=== PATIENT | female | born 1950 | race Caucasian/White ===

== ENCOUNTER 2016-11-23 06:02 | Inpatient (IN) | payer OTHER ==
--- NOTE | 2016-11-12 14:46 | PCM.ANEPRE ---
Anesthesia Pre-Op Review Reason for Review: SURGEON'S REQUEST "COMORBIDITIES & CLEARANCE REVIEW" Anesthesia Recommendations: Proceed with Procedure Additional Comments 66 yo female, morbidly obese (BMI 40), chronic pain on methadone, mild- intermittent asthma, h/o atrial fibrillation. Stop-bang 3. Presents for 4-level ACDF for cervical stenosis with worsening myelopathy. Of course, the anesthesiologist will need to evaluate the patient on the day of surgery, but based on a review of her chart I see no reason to delay for further evaluation. Kranthi Ferguson MD Nov 12, 2016 14:46
--- NOTE | 2016-11-22 16:21 | PCM.HPSURG ---
Subjective Date of Service: Nov 08, 2016 Referring Provider: Admitting Physician: Primary Care Physician: Candis Adan DO Attending Physician: Brian Chambers MD Chief Complaint SEE BELOW History of Present Illness Patient: Homa Reyes Date of : 1950 Visit Type: Pre Op Visit Date: 11/08/2016 10:45 AM This 66 year old female presents for Preop C3-7 ACDF, Allograft x 4 and & Plating. History of Present Illness: 1. Preop C3-7 ACDF, Allograft x 4, & Plating Homa Reyes is a 66 year old female referred by Primary Care Provider (PCP ) Dr. Candis Adan D.O. who presents today's date 11/08/2016 for a preoperative type of appointment concerning the decision for surgery involving C3-4, C4-5, C5 -6, & C6-7 anterior cervical discectomy and fusion, with allograft bone 4, & anterior cervical plating from C3-7 secondary to a diagnosis of cervical spondylosis with myelopathy with related complaints of severe, intractable, and debilitating headache with referred neck spasm to the lower back & pain radiating to the bilateral shoulders, upper, & lower extremities worse on the left-side including numbness, paresthesias, dysesthesias, & difficulty with coordination, imbalance, & bladder spasticity. The patient was last evaluated by Dr. Brain Greenfield M.D. on 10/13/2016 documenting spondylosis and symptoms of myelopathy with gradual progression over the past 2 years. She was seen in consultation 08/19/2016 found to have cord compression in 4 levels C3-C7 and a C3-C4 subluxation and symptoms of cervical myelopathy. EMGs/NCV's were obtained 08/24/2016 that did not show cervical radiculopathy and did not show evidence of peripheral neuropathy. It should be noted that this patient does have bilateral shoulder joint injury causing local shoulder and arm pain with arm movements it is currently on medical management for this condition. She is primarily symptomatic from cervical myelopathy and reports that cervical flexion causes a diffuse heavy ache in her upper extremities and lower extremities, and increased left hand pain. She has characteristic symptoms of cervical myelopathy. She reports constant local neck pain with flareups of more intense local pain, headache and stiffness. She also reports a constant ache between the shoulder blades. She reports that her arms and legs feel tired heavy and achy diffusely over the past year. She reports sharp shooting pains down the posterior arm forearm and into the hands bilaterally over the past 6 months. She also reports episodes of sharp shooting pains down both legs involving the lateral leg and anterior leg more severe on the right side over the past 6 months. She reports constant numbness involving her whole body the face but most of the numbness and the paresthesias are in her hands and feet over the past 6 months. She reports that her hands feel shaky is dropping things and she is loss coordination in her hands with deterioration of her handwriting over the past year. She also reports a cramping sensation in her forearms, hands and feet over the past year. She reports that the cramping in the paresthesias in the feet can wake her from sleep. She has had lumbar spasms for many years but the spasms have progressed over the past 2 years. She also reports frequent falls and impairment of balance over the past year. She's had a long history of bladder spasticity voiding 1-2 times at night 10 years ago. Over the past 3-4 years she has been voiding 4-6 times. The patient reports that cervical extension causes local neck pain, pain between the shoulder blades and diffuse aches in her shoulders and upper arms. However the patient has bilateral shoulder joint pain with arm movement more severe on the left side. Arm movements can't provoke numbness paresthesias and cramping and pain in the arms and hands. An MRI scan of the cervical spine was obtained 06/14/2016 showing a C3-4 subluxation and spondylosis with evidence of cord compression at 4 levels, C3-4 C4-5 C5-C6 and C6-7. She also has severe neural foraminal narrowing on the right side or and C5-6 and on the left side at C4-5. Having failed conservative treatment the patient is an appropriate candidate for surgery involving a C3-C7 ACDF with allograft bone and C3-C7 anterior cervical plating. Dr. Chambers & the patient discussed all the risks and benefits associated with the procedure as well as reasonable expectations with regard to surgical outcomes & the patient elected to proceed with surgery as planned. The patient denies any complete or acute loss of control of bowel or bladder function, saddle paresthesia or anesthesia. The patient has a pertinent positive past medical, surgical and social history for right knee surgery, left elbow surgery, lumbar spinal decompression 3, hysterectomy, section 2, nose surgery, history of atrial fibrillation , hypertension, IBS, psoriasis, ADHD, migraines, restless leg syndrome, history of anorexia nervosa, depression, PTSD, osteoarthritis, history of spinal meningitis, seasonal allergies & mild-moderate worsening asthma, osteoarthritis , history of angina, history of hyperkalemia, patient believes that she has unsubstantiated autoimmune disorder lupus, chronic pain management (methadone), & likely chronic pain syndrome. The patient's related complaints have been a serious detriment to their happiness and activities of daily living. Having failed conservative treatment the patient presents today for their decision for surgery appointment involving C3-4, C4-5, C5-6, & C6-7 anterior cervical discectomy and fusion, with allograft bone 4, & anterior cervical plating from C3-7 for treatment of cervical spondylosis with myelopathy; related to severe, intractable, and debilitating headache with referred neck spasm to the lower back & pain radiating to the bilateral shoulders, upper, & lower extremities worse on the left-side including numbness, paresthesias, dysesthesias, & difficulty with coordination, imbalance, & bladder spasticity. The procedure is scheduled to be performed by Dr. Brian Chambers M.D. on 11/23/2016. ANESTHESIA & PERIOPERATIVE NOTE: We are requesting anesthesia preoperative consultation for review of comorbidities including but not limited to methadone pain management, mild-moderate asthma, history of atrial fibrillation, & medical clearance documentation. Student Accounts Coordinator Dino Allen NP & the patient's PCP will manage her outpatient post-operative pain. Problem List: Problem Description Fibromyalgia Restless leg syndrome Atrial fibrillation IBS - Irritable bowel syndrome Chronic back pain ADHD Migraine headache Anxiety PTSD Vision impairment Hearing impairment Depression H/O: chronic ear infection Osteoarthritis Medical/Surgical/Interim History Reviewed, no change. Last detailed document date:11/08/2016. Family History: Reviewed, no changes. Last detailed document date:11/08/2016. Social History (Reviewed, updated) 11/08/2016 Tobacco use reviewed. Preferred language is Sami. The patient does not need an flame cutting machine operator helper. Education/Employment/Occupation Employment History Status Retired Restrictions Geriatric Sales Ledger Administrator Currently . Smoking status: Former smoker. Smoking Status Use Status Type Smoking Status Years Used Total Pack Years yes Cigarette Former smoker Cessation Type Date Quit Longest Tobacco Free Cessation Method Cigarette 08/01/1990 25 Years CAFFEINE The patient uses caffeine - 2 cups a day. Allergies: Ingredient Reaction Medication Name Comment PERFUME KIWI LATEX PINEAPPLE IODINE METHOTREXATE KETOROLAC WALNUT Reviewed, no changes. Review of Systems System Neg/Pos Details Positive Nocturia. Neuro Positive Headache. MS Positive Back pain, Bone/joint symptoms, Muscle weakness, Myalgia, Neck stiffness. ENMT Positive Hearing loss. GI Negative Abdominal pain, constipation, diarrhea, nausea and vomiting. Reilly/Lymph Negative Blood clots. Constitutional Negative Chills and fever. Respiratory Negative Dyspnea, apnea and wheezing. Eyes Negative Double vision and vision loss. Psych Negative Anxiety and depression. Cardio Negative Chest pain, irregular heartbeat/palpitations, leg swelling and pacemaker. Integumentary Negative Mrsa and rash. Neuro Negative Dizziness and seizures. Endocrine Negative Weight gain and weight loss. Negative Dysuria, urge incontinence and urinary incontinence. Vital Signs Height Time ft in cm Last Measured Height Position % 10:23 AM 5.0 4.00 162.56 08/11/2016 Weight/BSA/BMI Time lb oz kg Context % BMI kg/m2 BSA m2 10:23 AM 237.20 107.592 dressed with shoes 40.71 Blood Pressure Time BP mm/Hg Position Side Site Method Cuff Size 10:23 AM 126/84 sitting left wrist automatic adult Temperature/Pulse/Respiration Time Temp F Temp C Temp Site Pulse/min Pattern Resp/ min 10:23 AM 98.7 37.1 95 regular Pain Scale Time Pain Score Method 10:23 AM 6/10 Numeric Pain Intensity Scale Measured By Time Measured by 10:23 AM Donal Granados MA Screening Summary:o The following were reviewed: tobacco use, alcohol use and caffeine use Physical Exam Exam Findings Details Comments WD/WN, woman who is AO x 3, cooperative & appears to be in NAD w/ language & speech that is intact & fluent. There is no evidence of recent or remote memory impairment. The patient's knowledge is appropriate for age & level of education w/ a pleasant affect & euthymic mood. Ambulates w/ no difficulty. NC/AT, PERRL, EOMI, w/o facial droop, hearing grossly intact, nostrils patent, oral cavity and pharynx normal. Neck supple, w/o LAD or thyromegaly. Heart reveals RRR w/o audible murmurs Lungs CTAB Abdomen is NT/ND Decreased ROM of Cervical Spine Positive Spurlings, Neg Hoffmans, Neg Lhermittes Positive Tinnels bilateral, Neg Phalens, tenderness over cubital tunnel provoking ulnar distribution pain bilaterally Motor Strength: 5/5 throughout in UEs and LEs Diminished sensation in an ulnar distribution bilaterally and left C6 DTRs, are 2+ in UEs, 2+ knees bilaterally absent at the ankles, no clonus Assessment/Plan # Detail Type Description 1. Assessment Cervical spondylosis with myelopathy (M47.12). 2. Assessment Preop examination (Z01.818). Patient Plan We including your Attending Surgeon have discussed the risks and benefits associated your scheduled procedure which you have verbally acknowledged understanding including but not limited to the possibility of an outcome that we are unable to predict or was not mentioned. 1. You are scheduled for a C3-4, C4-5, C5-6, & C6-7 anterior cervical discectomy and fusion, with allograft bone 4, & anterior cervical plating from C3-[address] Brian Morfin M.D. at [facility] on 11/23/2016. 2. Check in time is 6 AM. Also please ignore instructions below if told otherwise by your preadmission nurse or if you do not take the medications listed below. 3. Nothing to eat after midnight the night before surgery. You may take all of your "approved" medications with small sips of water. Remember to take your a.m. hypertension medication if it is a beta chay and ends in "olol. Otherwise ask your doctor if you need to hold your a.m. hypertension medication. 4. No aspirin, ibuprofen, Naprosyn, or other NSAIDs starting 7 days prior to surgery. 5. Please stop Warfarin/Coumadin or other blood thinners such as Plavix, Aggrenox, or Xarelto 7 days prior to your surgical procedure and follow specific instructions from your prescribing provider. 6. Please stop Lovenox bridging in the morning one day prior to procedure. 7. Please stop Suboxone/Buprenorphine at least 4 days prior to procedure. 8. Go to the hospital today to get her preoperative testing done. Take the order form to the surgery desk on the second floor of the hospital, [facility] (main entrance next to the emergency entrance). I will notify you if there is any test results that require further workup prior to surgery. 9. Follow the instructions you were given today, use the cleansing cloths the night before as well as the morning of her surgery. 10. If you are prescribed inhalers, CPAP or BiPAP machines you use at home bring along with you to the hospital. 11. ONLY If you take medications for Diabetes: If you have an insulin pump continue lowest (typically night-time) basal rate into the a.m. If you do not have a pump check h your a.m. blood sugar and hold insulin if BS less than 100. If you are taking long-acting, intermediate acting (NPH) or 70/30 preparation : Take half on day of procedure. If you are taking ultra long-acting insulin such as glargine, Lantus either at night or in the a.m. continue as scheduled ( including day of surgery). If you take short acting regular insulin (insulin not delivered via pump) discontinue on day of procedure. 12. Please call if you have any questions before your surgery: [phone]. Today's instructions/counseling include(s) Pre-operative instructions given to the patient and or legal ocean import representative(s) orally and in writing. 13. Our office will contact you if there are any test results that require further workup prior to surgery. 14. Please see Dino Allen & Dr. Candis Adan DMorenitaOMorenita this week to discuss her postoperative pain management & obtain medical clearance to proceed with surgery. Provider Plan The patient's history and examination as well as radiological findings were reviewed with Dr. Brian Greenfield M.D. and conveyed the patient in detail. The findings are consistent with cervical spondylosis with myelopathy and are most likely the cause of the patient's severe, intractable, and debilitating headache with referred neck spasm to the lower back & pain radiating to the bilateral shoulders, upper, & lower extremities worse on the left-side including numbness, paresthesias, dysesthesias, & difficulty with coordination, imbalance, & bladder spasticity. The patient has failed extensive conservative treatment for this condition. The treatment options were discussed with the patient. The options include attempt to live with the condition, reattempt conservative treatment, try a pain management intervention / injection or consider a surgical intervention. We are not extremely optimistic that further conservative treatment, pain management intervention and/or injection will adequately resolve the patient's symptoms of severe, intractable, and debilitating headache with referred neck spasm to the lower back & pain radiating to the bilateral shoulders, upper, & lower extremities worse on the left-side including numbness, paresthesias, dysesthesias, & difficulty with coordination, imbalance, & bladder spasticity. Therefore we recommend C3-4, C4-5, C5-6, & C6-7 anterior cervical discectomy and fusion, with allograft bone 4, & anterior cervical plating from C3-7. The patient was provided/offered educational materials pertaining to their diagnosis and the above discussed procedure. We discussed the risks and benefits associated with this surgery. A spine model was used to explain the nature of this type of surgery. The risk of the required anesthesia was also mentioned including but not limited to organ failure such as heart attack, pneumonia and stroke even . The risk of this type of surgery was also mentioned. Including but not limited to an unsuccessful outcome, residual symptoms, odynophagia, dysphasia or sore throat, referred or radiating posterior spinal myofascial inflammatory pain or spasm, post operative instability, instrumentation failure, sensory changes, blood loss, blood clots, wound infection, spinal cord or nerve damage, CSF or lymph leak, damage to neighboring structures such as the recurrent laryngeal nerve, perforation of the esophagus or trachea, pseudoarthrosis, adjacent level disease, Tavia's Syndrome, vision loss, voice change, resulting in temporary or permanent dysfunction, even disability, paralysis, and . The recovery of this type of surgery was also mentioned. This includes but is not limited to reasonable expectations for the treatment of myelopathy involving the surgical decompression of the cervical spinal cord; which will stop the progression of the patient's condition but cannot guarantee improvements in any associated physical complaints. The patient verbalized understanding all the risks and benefits, knowing that it is impossible to predict or guarantee every surgical outcome; and would like to proceed with the above discussed procedure anyways. Surgery is scheduled for 11/23/2016. The standard [facility] preoperative screening tests, medicine restrictions, and logistical protocols apply. Any preoperative testing is within normal limits to undergo the above discussed procedure unless otherwise noted in the medical record. ANESTHESIA & PERIOPERATIVE NOTE: We are requesting anesthesia preoperative consultation for review of comorbidities including but not limited to methadone pain management, mild-moderate asthma, history of atrial fibrillation, & medical clearance documentation. Student Accounts Coordinator Dino Allen NP & the patient's PCP will manage her outpatient post-operative pain. Medications (added, continued or stopped this visit): Start Date Medication Directions Stop Date albuterol sulfate HFA 90 mcg/actuation aerosol inhaler inhale 1 puff by inhalation route 4 times every day buspirone 10 mg tablet take 1 tablet by oral route 2 times every day (Not to exceed 20mg/day) duloxetine 30 mg capsule,delayed release take 1 capsule by oral route every day gabapentin 300 mg capsule take 1 capsule by oral route 3 times a day as needed (not to exceed 900mg/day) Lidocaine Viscous 2 % mucosal solution take 10 milliliter by oral route every 6 hours as needed for sore throat and swish and spit out methadone 5 mg tablet take 1 tablet by oral route 4 times every day methocarbamol 750 mg tablet take 1 tablet by oral route every day ondansetron HCl 4 mg tablet take 1 tablet by oral route every 8 hours as needed for nausea tretinoin 0.025 % topical cream triamcinolone acetonide 0.1 % topical cream apply by topical route every day a thin layer to the affected area(s) Counseling/Educational Factors: Counseling / educational factors reviewed. Counseling / educational factors reviewed. This is a visit of 60 minutes. 50 minutes were spent counseling. This document may have been created using voice recognition software or other electronic means and may contain inadvertent assembler lay ups errors. Provider: Davi SANCHEZ 11/08/2016 12:37 PM Document generated by: Davi Gordillo 11/08/2016 12:37 PM CC Providers: Candis Adan [address] [facility] [id number] [place] [address] w jason cagle c l i n i c s . o r g Allergy Allergies: Coded Allergies: iodine (Verified Allergy, Severe, HIVES, CONTACT DERMATITIS, 11/11/16) morphine (Verified Allergy, Severe, HIVES,N&V, 11/11/16) ketorolac (Verified Allergy, Unknown, UNKNOWN, 11/11/16) latex (Verified Allergy, Unknown, UNKNOWN, 11/11/16) methotrexate (Verified Adverse Reaction, Severe, PSYCHOSIS, 11/11/16) Uncoded Allergies: FOODS (Allergy, Unknown, UNKNOWN (KIWI,WALNUTS,PINEAPPLE,BERRIES,CANE SUGAR), 11/11/16) CANE SUGAR-COMA NEWSPAPER INK (Allergy, Unknown, UNKNOWN, 11/11/16) PERFUME & HAIRSPRAY (Allergy, Unknown, UNKNOWN, 11/11/16) Social History Hx Alcohol Use: Yes (RARELY) Hx Substance Use: Yes (MARIJUANA & "PAIN KILLERS") PMH HEENT History History of ENT Problems?: Yes HEENT History: Positive for:: Hearing Problem (HX CHROINIC EAR INFECTIONS) Sinus Problem (SEASONAL ALLERGIES S/P NASAL SURGERY) Cardiovascular History History of Heart Problems?: Yes Cardiovascular History: Positive for:: Atrial Fibrillation Chest Pain (HX ANGINA) Hypertension (HYPERLIPOIDEMIA) Denies:: Heart Murmur Valvular Heart Disease Respiratory History of Respiratory Problem: Yes Respiratory History: Positive for:: Asthma Dyspnea (W/ INTERMITTANT WHEEZING) Use of Inhalers / NEBS Denies:: Use of C-PAP Machine Neurological History Hx Neurologic Problems?: Yes Neurological History: Positive for:: Headaches Other Neurological History: RLS HX SPINAL MENINGITIS,CHRONIC PAIN SYNDROME (ON METHADONE),IDIOPATHIC PERIPHERAL NEUROPATHY Gastrointestinal History HX of GI Problems?: Yes Other GI Pertinent History: HX IBS Genitourinary History Hx of Gu Problems?: Yes Other Pertinent History?: Female/Male History Reproductive History Female: Denies: Currently ? (S/P C/S X2) Skin History Skin History: Positive for:: History Skin Disorders? (PSORIASIS, ACNE HX RASHES) Denies:: Pressure Ulcers Musculoskeletal History Hx Musculoskeletal Problems?: Yes Musculoskeletal History: Positive for:: Degenerative Joint Fibromyalgia Joint Replacement (S/P RT TKA) Musculoskeletal Trauma (HX DISLOC. RT SHOULDER S/P LT ELBOW RPR) Osteoarthritis (OSTEOPOROSIS) Systemic Lupus (NOT DIAGNOSED, BUT PT THINKS SHE HAS IT) Denies:: Back Injury (C/OF CHRONIC BACK PAIN S/P LUMBAR DECOMPRESSION X3) Psycho Social History Hx of Psycho/Social Problems?: Yes Psycho Social History: Positive for:: Anxiety (PTSD) Hx Depression Other History Hx Any Other Health Problems?: Yes Other History: Denies:: Cancer Endocrine Disease Thyroid Disease Diabetes: No Social History Hx Alcohol Use: Yes (RARELY)Hx Substance Use: Yes (MARIJUANA & "PAIN KILLERS") Davi Gordillo PA-C Nov 22, 2016 16:21
[2016-11-23] VITALS (13 sets, daily range): BP systolic 118–175; BP diastolic 68–99; PULSE 82–110; RESP 6–20; O2SAT 90–96
[~2016-11-23] VITALS: Ht 162.6 cm; Wt 107.0 kg
[2016-11-23] MEDS: Lactated Ringer's 1,000 ML IV SCH ×6 (05:00→21:47)
[~2016-11-23 06:02] MED LIST: ALBU8.5H2 INHALATION; BUSP10TA2 PO; Bacitracin 50,000 unit Inj IRRIGATION ONE; CeFAZolin Inj 2 GM in IV Premix 1 EACH IV ONE; DULO30CA50 PO; GABA-502 PO; HYDR12.5 PO; KEN25CR TP; LIDO20SO MM; LISI-567 PO; METH750T3 PO; METHADONE PO; ONDA4TAB6 PO; SIMV20TA4 PO; TRET20CR13 TP; Thrombin Powder 5,000 Unit TOPICAL ONE
[2016-11-23] MEDS ORDERED: CeFAZolin Inj 2 gm / 50mL D5W IV ONE (06:18)
[2016-11-23] MEDS ORDERED: Bacitracin 50,000 unit Inj ONE (07:17)
[2016-11-23] MEDS ORDERED: Thrombin Powder 5,000 Unit TOPICAL ONE (07:17)
--- NOTE | 2016-11-23 07:23 | PCM.HPANE ---
Patient Data Date of Service: Nov 23, 2016 Surgeon Admitting Provider: Attending Provider:Brian Chambers MD Primary Care Physician:Candis Adan DO Other Provider:Yee Martinez Anesthesia Reason for Visit Cervical Spondylosis With Myelopathy Ht/WT & BMI Height (Feet): 5 Height (Inches): 4.00 Weight (Kilograms): 108.1 Body Mass Index 40.00 Allergies Coded Allergies: iodine (Verified Allergy, Severe, HIVES, CONTACT DERMATITIS, 11/11/16) morphine (Verified Allergy, Severe, HIVES,N&V, 11/11/16) ketorolac (Verified Allergy, Unknown, UNKNOWN, 11/11/16) latex (Verified Allergy, Unknown, UNKNOWN, 11/11/16) methotrexate (Verified Adverse Reaction, Severe, PSYCHOSIS, 11/11/16) Uncoded Allergies: FOODS (Allergy, Unknown, UNKNOWN (KIWI,WALNUTS,PINEAPPLE,BERRIES,CANE SUGAR), 11/11/16) CANE SUGAR-COMA NEWSPAPER INK (Allergy, Unknown, UNKNOWN, 11/11/16) PERFUME & HAIRSPRAY (Allergy, Unknown, UNKNOWN, 11/11/16) Past Anesthesia History Anesthesia History: Denies:: Anesthesia Reactions, Malignant Hyperthermia Diabetes History Hx Diabetes?: No Current Bedside Blood Glucose: 100 MRSA MRSA: No Medications Hypertension Medication: Yes (LISINOPRIL,HCTZ) Home Meds Incl Beta Alan: No Reported Medications Simvastatin 20 Mg Oqxqxu78 Mg PO HS Ref 0 11/11/16 Lisinopril 20 Mg Ogldjx84 Mg PO DAILY 30 Days Ref 0 11/11/16 Hydrochlorothiazide 12.5 Mg Rxvyarl81.5 Mg PO DAILY 30 Days Ref 0 11/11/16 Triamcinolone Acet (Triamcinolone Acetonide Cream)1 Applic/0.25 Gm Cr1 Applic TP DAILY #60 GM Ref 0 0.1% 11/11/16 Tretinoin 20 Gm Cream..g.1 Applic TP DAILY PRN PRN 0.025% 11/11/16 Ondansetron (Zofran)4 Mg Tablet4 Mg PO Q8H PRN For Nausea 11/11/16 Methocarbamol 750 Mg Utcavz008 Mg PO DAILY PRN For Spasm Ref 0 11/11/16 [Methadone ] No Conflict Check5 Mg PO QID 11/11/16 Lidocaine HCl (Lidocaine HCl Viscous)20 Mg/1 Ml Qstnaghr67 Ml MM Q6H PRN PRN SWISH & SPIT 11/11/16 Gabapentin 300 Mg Vzmiprg150 Mg PO TID Ref 0 11/11/16 Duloxetine 30 Mg Capsule.dr30 Mg PO DAILY Ref 0 11/11/16 Buspirone 10 Mg Lbdzfp60 Mg PO BID Ref 0 11/11/16 Albuterol HFA (Proair HFA)8.5 Gm Hfa.aer.ad2 Puffs INHALATION Q4H PRN PRN #1 INHALER 11/11/16 History History of ENT Problems?: Yes HEENT History: Positive for:: Hearing Problem (HX CHROINIC EAR INFECTIONS) Sinus Problem (SEASONAL ALLERGIES S/P NASAL SURGERY) Denture Type: None Teeth Condition: Within Normal Limits Hx of Heart Problems?: Yes Cardiovascular History: Positive for:: Atrial Fibrillation Chest Pain (HX ANGINA) Hypertension (HYPERLIPOIDEMIA) Denies:: Heart Murmur Valvular Heart Disease Hx of Respiratory Problem?: Yes Respiratory History: Positive for:: Asthma Dyspnea (W/ INTERMITTANT WHEEZING) Use of Inhalers / NEBS Denies:: Use of C-PAP Machine Other Resp Pertinent History: Infrequent prn MDI use. Hx Neurologic Problems?: Yes Neurological History: Positive for:: Headaches Other Neurological Pertinent: RLS HX SPINAL MENINGITIS,CHRONIC PAIN SYNDROME (ON METHADONE),IDIOPATHIC PERIPHERAL NEUROPATHY Hx of GI Problems?: Yes Other GI Pertinent History: HX IBS Hx of Problems?: Yes Other Pertinent History: Female Hx: Denies:: Currently Skin History: Positive for:: History Skin Disorders? (PSORIASIS, ACNE HX RASHES) Denies:: Pressure Ulcers Hx Musculoskeletal Problems?: Yes Musculoskeletal History: Positive for:: Degenerative Joint Fibromyalgia Joint Replacement (S/P RT TKA) Musculoskeletal Trauma (HX DISLOC. RT SHOULDER S/P LT ELBOW RPR) Osteoarthritis (OSTEOPOROSIS) Systemic Lupus (NOT DIAGNOSED, BUT PT THINKS SHE HAS IT) Denies:: Back Injury (C/OF CHRONIC BACK PAIN S/P LUMBAR DECOMPRESSION X3) Hx of Psycho/Social Problems?: Yes Psycho Social History: Positive for:: Anxiety (PTSD) Hx Depression Hx Surgeries?: Yes (HYST,RT TKA,C/S X2,LT ELBOW RPR,LUMBAR DECOMP X3,NASAL SURGERY) Hx Any Other Health Problems?: Yes Other History: Denies:: Cancer Endocrine Disease Thyroid Disease Hx Diabetes: NoBedside Blood Glucose: 100 Hx Alcohol Use: Yes (RARELY)Hx Substance Use: Yes (MARIJUANA & "PAIN KILLERS") Have You Smoked inLast 12 mo: NoApprox How Many Cigarettes/day: 3 PPD X 15YRS Stop/Bang Treated for Sleep Apnea?: No Do You Have a CPAP Machine?: No S-Snoring: Do You Snore Loudly: No T-Tired: feel tired, fatigued: Yes O-Obsered: Observed not breath: No P-Blood Pressure: treated: Yes B- Body Mass Index > 35 kg/m2: Yes A- Age over 50: Yes N- Neck Large Circumference: Yes G- Gender Male: No KEREN Total Score: 5 KEREN Risk Assessment: Low Risk, <3 Yes KEREN Category 1: Yes Risk Assessment Category Category 1A: Patient has history of documented sleep apnea, and HAS NOT received any narcotic, sedative or anesthesia administration during this stay. Category 1B: Patient has history of documented sleep apnea, and HAS received any narcotic , sedative or anesthesia administration during this stay Category 2: Patient has SUSPECTED Obstructive Sleep Apnea, and HAS received any narcotic , sedative or anesthesia administration during this stay. Category 3: Patient has SUSPECTED Obstructive Sleep Apnea and HAS NOT received narcotic, sedative or anesthesia administration during this stay. Category 4: Outpatient in Procedural Areas with known sleep apnea or who screen positive for High Risk via the STOP/BANG questionnaire. Exam Exam Vital Signs Vital Signs Date Time Temp Pulse Resp B/P Pulse Ox O2 Delivery O2 Flow Rate FiO2 11/23/16 06:42 35.8 82 16 118/68 96 Room Air General Appearance: Alert, Oriented X3, Cooperative, No Acute Distress HEENT/AIRWAY: MP 2, Other (missing cap upper right molar) Lungs: Clear to Auscultation Heart: Exam Unremarkable, Regular Rate/Rhythm, No Murmurs/Rubs/Gallops Meds/Labs/Diagnostics Admission Meds Current Medications Lactated Ringer's (Lr) 1,000 ml @ 120 mls/hr Q8H20M IV Last administered on t 06:18; Start 11/23/16 at 05:00; Stop 11/23/16 at 13:19 Bedside Blood Glucose: 100 Plan Impression Patient chart reviewed, patient interviewed and anesthestic plan with risks, benefits, and alternatives discussed, and informed consent obtained. NPO per Anesth. Guidelines: Yes ASA Physical Status: ASA3 Severe Disease Anesthetic Plan: GA Bene/Risks/Altern/Consents: Yes HP Complete Prior to Induction: Yes Shekhar Marte MD Nov 23, 2016 07:23
[2016-11-23] MEDS ORDERED: Bupivacaine-MPF 0.5% 30 mL Inj INFILTRATE ONE (08:18)
--- NOTE | 2016-11-23 09:06 | DRSVH ---
PROCEDURE: X-RAY CERVICAL SPINE, 1 VIEW INDICATIONS: C3-4, 4-5, 5-6, 6-7 TECHNIQUE: Single lateral view of the cervical spine acquired. COMPARISON: [facility], , C-SPINE WITHOUT CONTRAST, 06/14/2016, 17:19. FINDINGS: Bones: 2 radiopaque surgical probe is present projected over the anterior disc interspaces at the C3- C4 and C4-C5 levels. Soft tissues: ETT present and the tip is not well-seen. IMPRESSION: Localization of the anterior disc interspaces at the C3-C4 and C4-C5 levels for operative planning. Dr. Chambers given results at 0905 hrs. 11/23/2016. Dictated by: Wellington Cruz RRA Interpreted: Hailey Wilcox MD on 11/23/2016 at 9:04 Transcribed by: DONNIE on 11/23/2016 at 9:06 Approved by: Hailey Wilcox MD, PhD on 11/23/2016 at 11:28
[2016-11-23] MEDS ORDERED: Benzocaine (Hurricaine) 20% Unit-Dose Spray MUC_MEMBRM PRN ×2 (13:50→13:55)
[2016-11-23] MEDS ORDERED: TRETINOIN TP PRN (13:50)
[2016-11-23] MEDS ORDERED: Promethazine Inj 25 MG in 0.9% Sodium Chloride-Pha MIX 100 ML IV PRN (13:55)
[2016-11-23] MEDS ORDERED: Senna-Docusate 8.6-50 mg Tablet PO PRN (14:00)
[2016-11-23] MEDS ORDERED: hydrOXYzine Pamoate 25 mg Capsule PO PRN (14:00)
[2016-11-23] MEDS ORDERED: HYDROmorphone 1 mg/mL Inj IVPUSH PRN ×2 (14:00→14:15)
[2016-11-23] MEDS ORDERED: Sodium Biphos-Phos 133 mL Enema RECTAL PRN (14:00)
[2016-11-23] MEDS ORDERED: Magnesium Hydroxide 10 mL Oral Concentration PO PRN (14:00)
[2016-11-23] MEDS ORDERED: Benzocaine-Menthol Lozenge 2/Pkg PO PRN (14:00)
[2016-11-23] MEDS ORDERED: Polyethylene Glycol (PEG) 17 Gm Powder PO PRN (14:00)
[2016-11-23] MEDS ORDERED: Lactated Ringer's 1,000 ML IV SCH (14:14)
[2016-11-23] MEDS ORDERED: Lactated Ringer's 500 ML IV PRN (14:14)
[2016-11-23] MEDS ORDERED: Atropine 0.4 mg/mL Inj IVPUSH PRN (14:15)
[2016-11-23] MEDS ORDERED: Labetalol 5 mg/mL 4 mL Inj IV PRN (14:15)
[2016-11-23] MEDS ORDERED: Ondansetron 2 mg/mL 2 mL Inj IVPUSH PRN (14:15)
[2016-11-23] MEDS ORDERED: fentaNYL-PF 50 mCg/mL 2 mL Inj IVPUSH PRN (14:15)
[2016-11-23] MEDS ORDERED: Albuterol-Ipratropium 3 mL Inhalation Solution NEB PRN (14:15)
[2016-11-23] MEDS ORDERED: EPHEDrine Sulfate 50 mg/mL Inj IVPUSH PRN (14:15)
[2016-11-23] MEDS ORDERED: Phenylephrine 10,000 mCg/mL Inj IVPUSH PRN (14:15)
[2016-11-23] MEDS ORDERED: MetoCLOpramide 5 mg/mL 2 mL Inj IVPUSH PRN (14:15)
[2016-11-23] MEDS: Ondansetron 2 mg/mL 2 mL Inj IVPUSH PRN ×2 (15:25→19:47)
--- NOTE | 2016-11-23 15:30 | NUR ---
POST OP Patient arrived to room 1004 on hospital bed. Alert and oriented. Moving all extremities, equal machine i cutter. Hard collar in place. PETTY drain to R anterior side of neck with sanguineous drainage. On 3 LPM O2 on arrival, weaned down to 2 LPM with sats @ 96%1 person assist with ambulation into bathroom. Able to void. c/o aching, sore pain to bilateral shoulders. Mild nausea. Administered zofran via IV. Placed on telemetry and CPOX. Oriented to room. Continue to monitor.
[2016-11-23] MEDS ORDERED: Propofol 10,000 mCg/mL 20 mL Inj ONE (15:59)
[2016-11-23] MEDS ORDERED: HYDROmorphone 2 mg/mL Inj ONE (15:59)
[2016-11-23] MEDS ORDERED: Dexamethasone 4 mg/mL Inj ONE (15:59)
[2016-11-23] MEDS ORDERED: Phenylephrine/NS 100 mCg/mL 10 mL Syringe IVPUSH ONE (15:59)
[2016-11-23] MEDS ORDERED: Ketamine 10 mg/mL 20 mL Inj ONE (15:59)
[2016-11-23] MEDS ORDERED: Ondansetron 2 mg/mL 2 mL Inj ONE (15:59)
[2016-11-23] MEDS ORDERED: fentaNYL-PF 50 mCg/mL 2 mL Inj ONE (15:59)
[2016-11-23] MEDS ORDERED: Albuterol 2.5 mg/3 mL Inhalation Solution NEB PRN (16:00)
[2016-11-23] MEDS: Acetaminophen IV 1,000 MG in IV Premix 1 EACH IV SCH ×2 (17:10→21:47)
[2016-11-23] MEDS ORDERED: 0.9% Sodium Chloride 100 ML ONE (17:32)
[2016-11-23] MEDS: CeFAZolin Inj 2 GM in IV Premix 1 EACH IV SCH (19:50)
[2016-11-23] MEDS: BusPIRone 15 mg Dividose Tablet PO SCH (20:13)
[2016-11-23] MEDS: Senna-Docusate 8.6-50 mg Tablet PO SCH (20:13)
--- NOTE | 2016-11-23 21:24 | OP ---
[address] [address] OPERATIVE REPORT PATIENT: BENY CROWELL : 1950 MR#: [id number] ADMIT: 11/23/2016 JOB ID: [id number] DATE OF SURGERY: 11/23/2016 PREOPERATIVE DIAGNOSIS(ES): Cervical spondylosis and myelopathy. POSTOPERATIVE DIAGNOSIS(ES): PROCEDURE PERFORMED: C3-7 anterior cervical diskectomy and fusion using allograft bone and C3-7 anterior plating. SURGEON: Brian Chambers MD. JAVA J2EE ARCHITECT: Davi Gordillo PA-C. ANESTHESIA: General with Dr. Shekhar Marte. ESTIMATED BLOOD LOSS: 75 cc. DRAINS: One PETTY. COMPLICATIONS: None. INDICATIONS: This patient presented with symptoms and findings of cervical myelopathy. She was found to have a grade 1 spondylolisthesis at C3-4 and severe spondylosis with cord compression at four levels from C3 through C7. PROCEDURE IN DETAIL: This patient was taken to the operating room, November 23, 2016, placed under general anesthesia, and prepped and draped sterile. The right side of the neck was infiltrated with 0.5% plain Marcaine. An incision was made transversely from the midline to the sternocleidomastoid at the C5 level. The incision was carried down sharply through the skin and subcutaneous tissues. Hemostasis was achieved with the bipolar electrocautery. Blunt dissection was used just medial to the sternocleidomastoid. The carotid was palpated and mobilized laterally. The esophagus and trachea were mobilized medially with an appendectomy retractor. The blunt dissection was carried into the prevertebral space. A bent spinal needle was used as a marker and placed at the C3-4 and C4-5 disk space. Its position was confirmed with an intraoperative lateral C-spine x-ray. Placement of the markers was confirmed by radiologist. The disk space at C3-4 was incised with the monopolar. The markers were removed from C3-4 and C4-5. The monopolar was used to bryce the C3-4, C4-5, C5-6, and C6-7 disk levels. Then, the retractors were placed at the C3-4 level with the blades beneath the longus coli musculature. The 12 mm [place] pins were placed into the vertebral bodies of C3 and C4 and distracted open and the microscope was brought into position, sighting down the disk space at C3-4. This patient had a diskectomy and fusion at four levels in the order of C3-4, C4-5, C5-6, and C6-7. Each level was done in the same manner. First, the annulus was incised with the monopolar. Then, the disk material was removed piecemeal with the curettes and pituitary rongeur. The high-speed bur was then used to take down the anterior and posterior osteophytes at each level and widen the disk space. The posterior longitudinal ligament was resected at all levels and all levels had an aggressive decompression of the central canal. On the right side, the patient had foraminotomies at C3-4 and C5-6, and on the left side, the patient had a foraminotomy at the C4-5 level. The foraminotomies were performed with a high-speed bur, curette, and Kerrison punch to decompress the right C4 and C6 roots and the left C5 roots. Following the decompression at each level, the rasp set was used to prepare for the fusion rasping to 8 mm. This would taper to 6 mm. Following the use of the rasp, the disk space was irrigated with antibiotic solution. Then, Gelfoam was used for hemostasis. The Gelfoam was then removed. An 8 mm allograft bone was selected to fit all four levels. It should be noted that the VertiGraft, the allograft bone, is 8 mm tapering to 6 mm. The bone graft was placed at C3-4, C4-5, C5-6, and C6-7 and distraction was released and the bone graft was held firmly in position. It should also be noted that after each level it was necessary to replace the [place] pins at the next adjacent level below and to replace the deep retractors at the next adjacent level below. Following the placement of bone grafts at all four levels, a plate was selected to span C3 through C7. A dynamic titanium plate was selected, a Almonte plate, a product of [employer]. The plate was secured to the vertebral bodies of C3-C4, C5-C6 and C7 with fixed angle 12 mm self-drilling screws. The screws were all locked into position and the spacing bars were removed from the plate, a plate with four spacing bars, and these were all taken out of the plate and removed from the wound. The wound was then irrigated with antibiotic solution and hemostasis was achieved with the bipolar electrocautery. A PETTY drain was placed at the base of the wound, brought out through a separate stab wound, and hooked up to bulb suction. The platysma was then approximated with interrupted sutures of 0 Vicryl and the skin was closed with 4-0 Vicryl using a subcuticular stitch. Steri-Strips were applied to the skin, which was dressed with Telfa, gauze, and tape, and the patient was placed in a hard cervical collar. DOUG
[2016-11-24 00:12] VITALS: BP 159/77; PULSE 99; RESP 20; O2SAT 96
--- NOTE | 2016-11-24 01:06 | NUR ---
Pain/Nausea Pt reports pain 4-7/10, requested PRN oxycodone with + effects. Pt also receiving routine IV tylenol. Pt had episode of nausea early in shift and rec'd zofran 8mg with + effects. Neck collar in place, dressing CDI, PETTY drain to right side is draining serous fluid. Pt has full sensation to all extremities with no tingling or numbness noted
[2016-11-24] MEDS: Lactated Ringer's 1,000 ML IV SCH ×2 (01:41→13:59)
[2016-11-24] MEDS: Acetaminophen IV 1,000 MG in IV Premix 1 EACH IV SCH ×2 (03:02→10:54)
[2016-11-24] MEDS: CeFAZolin Inj 2 GM in IV Premix 1 EACH IV SCH (03:30)
[2016-11-24 05:39] VITALS: BP 161/92; PULSE 94; RESP 18; O2SAT 95
[2016-11-24 07:42] VITALS: BP 149/87; PULSE 91; RESP 18; O2SAT 99
[2016-11-24] MEDS ORDERED: DULoxetine 30 mg DR Capsule PO SCH (08:30)
[2016-11-24] MEDS: Senna-Docusate 8.6-50 mg Tablet PO SCH (08:30)
--- NOTE | 2016-11-24 09:27 | PCM.DISURG ---
Surgical Discharge Instruction Date of Service Nov 24, 2016 Dates of Hospitalization Date of Hospital Admission Nov 23, 2016 at 14:52 Providers Admitting Physician: Brina Chambers MD Primary Care Physician: Candis Adan DO Attending Physician: Brian Chambers MD Discharge Diagnosis Discharge Diagnosis Status post C3-4, C4-5, C5-6, & C6-7 anterior cervical discectomy and fusion, with allograft bone 4, & anterior cervical plating from C3-7 Post Operative diagnosis Status post C3-4, C4-5, C5-6, & C6-7 anterior cervical discectomy and fusion, with allograft bone 4, & anterior cervical plating from C3-7 Additional Instructions Discharge Instructions Anterior Cervical Discectomy and Fusion What is my recovery like? The hospital stay is usually overnight. After the surgery, you might have a sore throat. This is very common due to the retraction (moving) of the esophagus and trachea. The sore throat usually resolves in 1-2 weeks. Drinking lots of fluids will help improve the symptoms. The cervical collar should be worn at night and for comfort only during the day. On your postoperative follow- up appointments, your Doctor will perform X-rays to see how well everything is healing. What are my restrictions? You should not lift anything heavier than five pounds. Avoid excessive movements of your neck until instructed specifically by your Doctor. Can I Shower? You may shower when you go home. You must remove the outside dressing on the 7th day after surgery, or change dressing as needed if soiled or saturated ( replacing new sterile gauze & water proof dressing) otherwise leave alone. The small pieces of tape (steri-strips) directly on top of the incision may get wet. The steri-strips will fall off on their own. Can I drive? No, you should not drive until specifically given permission from your Doctor in a follow up appointment. Most Patient's can drive in 2-3 weeks if they are not taking narcotic pain medications or muscle relaxers. You may ride in a car, but should avoid trips longer than two hours in duration. When can I return work / sports? Your Doctor will discuss your return to work with you on your first postoperative follow-up appointment. Most patients may return to work within 2 weeks for sedentary jobs. More physically demanding jobs may require 3-6 months of healing before such work can be considered. When should I call the doctor? You should call your Doctor or go to the Emergency Department if you develop chest pain, shortness of breath, oversedation, a temperature greater than 101.5 F, severe uncontrolled pain or weakness, loss of bowel or bladder function, choking, swelling, lots or drainage, pus discharge or constipation. Instructions Regarding Comfort & Pain Medication Use: During the recovery period , even with the use of pain medication, you may experience pain at the site of surgery. You may also have the same type of pain you had before surgery. Please use your pain scale as a guide for taking your pain medication. When your pain is greater than 4 out of 10, or when your pain reaches your personal tolerable level of pain, take your pain medication as prescribed. Use your pain medication on an 'as needed' basis. This means if your pain level is within your tolerable level of pain you DO NOT need to take the medication. As you get better, you will notice you can increase the time interval between doses and decrease the number of tablets you are taking, gradually taking less and less pain medication. Taking pain medication when it is not necessary (for example when your pain is tolerable or acceptable) can result in dangerous side effects and over- sedation. Signs and symptoms of over-sedation include: drowsiness, excessive sleeping, slow or difficult breathing, slurred speech, impaired thinking, confusion, impaired motor coordination. If you have any of these symptoms stop taking the medication and immediately contact your doctor. IF SYMPTOMS ARE LIFE THREATENING CALL 911. To decrease pain and swelling, frequently apply an ice pack for 20 min intervals with at least one hour off. When to take Acetaminophen for pain? If you don't have liver problems, allergies and/or Tylenol is not in your current pain medication. Take Extra Strength Tylenol 500mg 2 tabs by mouth every 6 hours as needed for pain. DO NOT EXCEED 8 TABS PER DAY. Follow Up Plan Follow Up Plan 1. Follow-up with physician sociology research assistant in outpatient neurosurgical clinic in 1 week for wound check. 2. Follow-up with [facility] in 1 week for postop pain management & transition to pain management with Primary Care Provider. Follow-up Provider (F9): Davi Gordillo PA-C Additional Information Attending Statement All documentation reviewed & orders authorized by Dr. Brian Chambers M.D. Davi Gordillo PA-C Nov 24, 2016 09:27
--- NOTE | 2016-11-24 09:35 | PCM.DC.SUR ---
Discharge Summary Date of Service: Nov 24, 2016 Date of Hospital Admission: Nov 23, 2016 at 14:52 Date of Operation(s): 11/23/2016 Date of Discharge: 11/24/2016 Diagnosis at Time of Discharge Status post C3-4, C4-5, C5-6, & C6-7 anterior cervical discectomy and fusion, with allograft bone 4, & anterior cervical plating from C3-7 Problems: Operation C3-4, C4-5, C5-6, & C6-7 anterior cervical discectomy and fusion, with allograft bone 4, & anterior cervical plating from C3-7 Brief History and Physical: Patient: Homa Reyes Date of : 1950 Visit Type: Pre Op Visit Date: 11/08/2016 10:45 AM This 66 year old female presents for Preop C3-7 ACDF, Allograft x 4 and & Plating. History of Present Illness: 1. Preop C3-7 ACDF, Allograft x 4, & Plating Homa Reyes is a 66 year old female referred by Primary Care Provider (PCP ) Dr. Candis Adan D.O. who presents today's date 11/08/2016 for a preoperative type of appointment concerning the decision for surgery involving C3-4, C4-5, C5 -6, & C6-7 anterior cervical discectomy and fusion, with allograft bone 4, & anterior cervical plating from C3-7 secondary to a diagnosis of cervical spondylosis with myelopathy with related complaints of severe, intractable, and debilitating headache with referred neck spasm to the lower back & pain radiating to the bilateral shoulders, upper, & lower extremities worse on the left-side including numbness, paresthesias, dysesthesias, & difficulty with coordination, imbalance, & bladder spasticity. The patient was last evaluated by Dr. Brian Greenfield M.D. on 10/13/2016 documenting spondylosis and symptoms of myelopathy with gradual progression over the past 2 years. She was seen in consultation 08/19/2016 found to have cord compression in 4 levels C3-C7 and a C3-C4 subluxation and symptoms of cervical myelopathy. EMGs/NCV's were obtained 08/24/2016 that did not show cervical radiculopathy and did not show evidence of peripheral neuropathy. It should be noted that this patient does have bilateral shoulder joint injury causing local shoulder and arm pain with arm movements it is currently on medical management for this condition. She is primarily symptomatic from cervical myelopathy and reports that cervical flexion causes a diffuse heavy ache in her upper extremities and lower extremities, and increased left hand pain. She has characteristic symptoms of cervical myelopathy. She reports constant local neck pain with flareups of more intense local pain, headache and stiffness. She also reports a constant ache between the shoulder blades. She reports that her arms and legs feel tired heavy and achy diffusely over the past year. She reports sharp shooting pains down the posterior arm forearm and into the hands bilaterally over the past 6 months. She also reports episodes of sharp shooting pains down both legs involving the lateral leg and anterior leg more severe on the right side over the past 6 months. She reports constant numbness involving her whole body the face but most of the numbness and the paresthesias are in her hands and feet over the past 6 months. She reports that her hands feel shaky is dropping things and she is loss coordination in her hands with deterioration of her handwriting over the past year. She also reports a cramping sensation in her forearms, hands and feet over the past year. She reports that the cramping in the paresthesias in the feet can wake her from sleep. She has had lumbar spasms for many years but the spasms have progressed over the past 2 years. She also reports frequent falls and impairment of balance over the past year. She's had a long history of bladder spasticity voiding 1-2 times at night 10 years ago. Over the past 3-4 years she has been voiding 4-6 times. The patient reports that cervical extension causes local neck pain, pain between the shoulder blades and diffuse aches in her shoulders and upper arms. However the patient has bilateral shoulder joint pain with arm movement more severe on the left side. Arm movements can't provoke numbness paresthesias and cramping and pain in the arms and hands. An MRI scan of the cervical spine was obtained 06/14/2016 showing a C3-4 subluxation and spondylosis with evidence of cord compression at 4 levels, C3-4 C4-5 C5-C6 and C6-7. She also has severe neural foraminal narrowing on the right side or and C5-6 and on the left side at C4-5. Having failed conservative treatment the patient is an appropriate candidate for surgery involving a C3-C7 ACDF with allograft bone and C3-C7 anterior cervical plating. Dr. Chambers & the patient discussed all the risks and benefits associated with the procedure as well as reasonable expectations with regard to surgical outcomes & the patient elected to proceed with surgery as planned. The patient denies any complete or acute loss of control of bowel or bladder function, saddle paresthesia or anesthesia. The patient has a pertinent positive past medical, surgical and social history for right knee surgery, left elbow surgery, lumbar spinal decompression 3, hysterectomy, section 2, nose surgery, history of atrial fibrillation , hypertension, IBS, psoriasis, ADHD, migraines, restless leg syndrome, history of anorexia nervosa, depression, PTSD, osteoarthritis, history of spinal meningitis, seasonal allergies & mild-moderate worsening asthma, osteoarthritis , history of angina, history of hyperkalemia, patient believes that she has unsubstantiated autoimmune disorder lupus, chronic pain management (methadone), & likely chronic pain syndrome. The patient's related complaints have been a serious detriment to their happiness and activities of daily living. Having failed conservative treatment the patient presents today for their decision for surgery appointment involving C3-4, C4-5, C5-6, & C6-7 anterior cervical discectomy and fusion, with allograft bone 4, & anterior cervical plating from C3-7 for treatment of cervical spondylosis with myelopathy; related to severe, intractable, and debilitating headache with referred neck spasm to the lower back & pain radiating to the bilateral shoulders, upper, & lower extremities worse on the left-side including numbness, paresthesias, dysesthesias, & difficulty with coordination, imbalance, & bladder spasticity. The procedure is scheduled to be performed by Dr. Brian Chambers M.D. on 11/23/2016. ANESTHESIA & PERIOPERATIVE NOTE: We are requesting anesthesia preoperative consultation for review of comorbidities including but not limited to methadone pain management, mild-moderate asthma, history of atrial fibrillation, & medical clearance documentation. Pipe Cutter Dino Allen NP & the patient's PCP will manage her outpatient post-operative pain. Problem List: Problem Description Fibromyalgia Restless leg syndrome Atrial fibrillation IBS - Irritable bowel syndrome Chronic back pain ADHD Migraine headache Anxiety PTSD Vision impairment Hearing impairment Depression H/O: chronic ear infection Osteoarthritis Medical/Surgical/Interim History Reviewed, no change. Last detailed document date:11/08/2016. Family History: Reviewed, no changes. Last detailed document date:11/08/2016. Social History (Reviewed, updated) 11/08/2016 Tobacco use reviewed. Preferred language is Greek. The patient does not need an mortgage specialist. 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 Smoking status: Former smoker. Smoking Status Use Status Type Smoking Status Years Used Total Pack Years yes Cigarette Former smoker Cessation Type Date Quit Longest Tobacco Free Cessation Method Cigarette 08/01/1990 25 Years CAFFEINE The patient uses caffeine - 2 cups a day. Allergies: Ingredient Reaction Medication Name Comment PERFUME KIWI LATEX PINEAPPLE IODINE METHOTREXATE KETOROLAC WALNUT Reviewed, no changes. Review of Systems System Neg/Pos Details Positive Nocturia. Neuro Positive Headache. MS Positive Back pain, Bone/joint symptoms, Muscle weakness, Myalgia, Neck stiffness. ENMT Positive Hearing loss. GI Negative Abdominal pain, constipation, diarrhea, nausea and vomiting. Reilly/Lymph Negative Blood clots. Constitutional Negative Chills and fever. Respiratory Negative Dyspnea, apnea and wheezing. Eyes Negative Double vision and vision loss. Psych Negative Anxiety and depression. Cardio Negative Chest pain, irregular heartbeat/palpitations, leg swelling and pacemaker. Integumentary Negative Mrsa and rash. Neuro Negative Dizziness and seizures. Endocrine Negative Weight gain and weight loss. Negative Dysuria, urge incontinence and urinary incontinence. Vital Signs Height Time ft in cm Last Measured Height Position % 10:23 AM 5.0 4.00 162.56 08/11/2016 Weight/BSA/BMI Time lb oz kg Context % BMI kg/m2 BSA m2 10:23 AM 237.20 107.592 dressed with shoes 40.71 Blood Pressure Time BP mm/Hg Position Side Site Method Cuff Size 10:23 AM 126/84 sitting left wrist automatic adult Temperature/Pulse/Respiration Time Temp F Temp C Temp Site Pulse/min Pattern Resp/ min 10:23 AM 98.7 37.1 95 regular Pain Scale Time Pain Score Method 10:23 AM 6/10 Numeric Pain Intensity Scale Measured By Time Measured by 10:23 AM Donal Grnaados MA Screening Summary:o The following were reviewed: tobacco use, alcohol use and caffeine use Physical Exam Exam Findings Details Comments WD/WN, woman who is AO x 3, cooperative & appears to be in NAD w/ language & speech that is intact & fluent. There is no evidence of recent or remote memory impairment. The patient's knowledge is appropriate for age & level of education w/ a pleasant affect & euthymic mood. Ambulates w/ no difficulty. NC/AT, PERRL, EOMI, w/o facial droop, hearing grossly intact, nostrils patent, oral cavity and pharynx normal. Neck supple, w/o LAD or thyromegaly. Heart reveals RRR w/o audible murmurs Lungs CTAB Abdomen is NT/ND Decreased ROM of Cervical Spine Positive Spurlings, Neg Hoffmans, Neg Lhermittes Positive Tinnels bilateral, Neg Phalens, tenderness over cubital tunnel provoking ulnar distribution pain bilaterally Motor Strength: 5/5 throughout in UEs and LEs Diminished sensation in an ulnar distribution bilaterally and left C6 DTRs, are 2+ in UEs, 2+ knees bilaterally absent at the ankles, no clonus Assessment/Plan # Detail Type Description 1. Assessment Cervical spondylosis with myelopathy (M47.12). 2. Assessment Preop examination (Z01.818). Patient Plan We including your Attending Surgeon have discussed the risks and benefits associated your scheduled procedure which you have verbally acknowledged understanding including but not limited to the possibility of an outcome that we are unable to predict or was not mentioned. 1. You are scheduled for a C3-4, C4-5, C5-6, & C6-7 anterior cervical discectomy and fusion, with allograft bone 4, & anterior cervical plating from C3-[address] Brian Morfin M.D. at [facility] on 11/23/2016. 2. Check in time is 6 AM. Also please ignore instructions below if told otherwise by your preadmission nurse or if you do not take the medications listed below. 3. Nothing to eat after midnight the night before surgery. You may take all of your "approved" medications with small sips of water. Remember to take your a.m. hypertension medication if it is a beta chay and ends in "olol. Otherwise ask your doctor if you need to hold your a.m. hypertension medication. 4. No aspirin, ibuprofen, Naprosyn, or other NSAIDs starting 7 days prior to surgery. 5. Please stop Warfarin/Coumadin or other blood thinners such as Plavix, Aggrenox, or Xarelto 7 days prior to your surgical procedure and follow specific instructions from your prescribing provider. 6. Please stop Lovenox bridging in the morning one day prior to procedure. 7. Please stop Suboxone/Buprenorphine at least 4 days prior to procedure. 8. Go to the hospital today to get her preoperative testing done. Take the order form to the surgery desk on the second floor of the hospital, [facility] (main entrance next to the emergency entrance). I will notify you if there is any test results that require further workup prior to surgery. 9. Follow the instructions you were given today, use the cleansing cloths the night before as well as the morning of her surgery. 10. If you are prescribed inhalers, CPAP or BiPAP machines you use at home bring along with you to the hospital. 11. ONLY If you take medications for Diabetes: If you have an insulin pump continue lowest (typically night-time) basal rate into the a.m. If you do not have a pump check h your a.m. blood sugar and hold insulin if BS less than 100. If you are taking long-acting, intermediate acting (NPH) or 70/30 preparation : Take half on day of procedure. If you are taking ultra long-acting insulin such as glargine, Lantus either at night or in the a.m. continue as scheduled ( including day of surgery). If you take short acting regular insulin (insulin not delivered via pump) discontinue on day of procedure. 12. Please call if you have any questions before your surgery: [phone]. Today's instructions/counseling include(s) Pre-operative instructions given to the patient and or legal billing representative(s) orally and in writing. 13. Our office will contact you if there are any test results that require further workup prior to surgery. 14. Please see Dino Allen & Dr. Candis Adan D.O. this week to discuss her postoperative pain management & obtain medical clearance to proceed with surgery. Provider Plan The patient's history and examination as well as radiological findings were reviewed with Dr. Brian Greenfield M.D. and conveyed the patient in detail. The findings are consistent with cervical spondylosis with myelopathy and are most likely the cause of the patient's severe, intractable, and debilitating headache with referred neck spasm to the lower back & pain radiating to the bilateral shoulders, upper, & lower extremities worse on the left-side including numbness, paresthesias, dysesthesias, & difficulty with coordination, imbalance, & bladder spasticity. The patient has failed extensive conservative treatment for this condition. The treatment options were discussed with the patient. The options include attempt to live with the condition, reattempt conservative treatment, try a pain management intervention / injection or consider a surgical intervention. We are not extremely optimistic that further conservative treatment, pain management intervention and/or injection will adequately resolve the patient's symptoms of severe, intractable, and debilitating headache with referred neck spasm to the lower back & pain radiating to the bilateral shoulders, upper, & lower extremities worse on the left-side including numbness, paresthesias, dysesthesias, & difficulty with coordination, imbalance, & bladder spasticity. Therefore we recommend C3-4, C4-5, C5-6, & C6-7 anterior cervical discectomy and fusion, with allograft bone 4, & anterior cervical plating from C3-7. The patient was provided/offered educational materials pertaining to their diagnosis and the above discussed procedure. We discussed the risks and benefits associated with this surgery. A spine model was used to explain the nature of this type of surgery. The risk of the required anesthesia was also mentioned including but not limited to organ failure such as heart attack, pneumonia and stroke even . The risk of this type of surgery was also mentioned. Including but not limited to an unsuccessful outcome, residual symptoms, odynophagia, dysphasia or sore throat, referred or radiating posterior spinal myofascial inflammatory pain or spasm, post operative instability, instrumentation failure, sensory changes, blood loss, blood clots, wound infection, spinal cord or nerve damage, CSF or lymph leak, damage to neighboring structures such as the recurrent laryngeal nerve, perforation of the esophagus or trachea, pseudoarthrosis, adjacent level disease, Tavia's Syndrome, vision loss, voice change, resulting in temporary or permanent dysfunction, even disability, paralysis, and . The recovery of this type of surgery was also mentioned. This includes but is not limited to reasonable expectations for the treatment of myelopathy involving the surgical decompression of the cervical spinal cord; which will stop the progression of the patient's condition but cannot guarantee improvements in any associated physical complaints. The patient verbalized understanding all the risks and benefits, knowing that it is impossible to predict or guarantee every surgical outcome; and would like to proceed with the above discussed procedure anyways. Surgery is scheduled for 11/23/2016. The standard [facility] preoperative screening tests, medicine restrictions, and logistical protocols apply. Any preoperative testing is within normal limits to undergo the above discussed procedure unless otherwise noted in the medical record. ANESTHESIA & PERIOPERATIVE NOTE: We are requesting anesthesia preoperative consultation for review of comorbidities including but not limited to methadone pain management, mild-moderate asthma, history of atrial fibrillation, & medical clearance documentation. Pipe Cutter Dino Allen NP & the patient's PCP will manage her outpatient post-operative pain. Medications (added, continued or stopped this visit): Start Date Medication Directions Stop Date albuterol sulfate HFA 90 mcg/actuation aerosol inhaler inhale 1 puff by inhalation route 4 times every day buspirone 10 mg tablet take 1 tablet by oral route 2 times every day (Not to exceed 20mg/day) duloxetine 30 mg capsule,delayed release take 1 capsule by oral route every day gabapentin 300 mg capsule take 1 capsule by oral route 3 times a day as needed (not to exceed 900mg/day) Lidocaine Viscous 2 % mucosal solution take 10 milliliter by oral route every 6 hours as needed for sore throat and swish and spit out methadone 5 mg tablet take 1 tablet by oral route 4 times every day methocarbamol 750 mg tablet take 1 tablet by oral route every day ondansetron HCl 4 mg tablet take 1 tablet by oral route every 8 hours as needed for nausea tretinoin 0.025 % topical cream triamcinolone acetonide 0.1 % topical cream apply by topical route every day a thin layer to the affected area(s) Counseling/Educational Factors: Counseling / educational factors reviewed. Counseling / educational factors reviewed. This is a visit of 60 minutes. 50 minutes were spent counseling. This document may have been created using voice recognition software or other electronic means and may contain inadvertent development technologist errors. Provider: Davi SANCHEZ 11/08/2016 12:37 PM Document generated by: Davi Gordillo 11/08/2016 12:37 PM CC Providers: [place] [id number] [id number] [place] [address] jason almaraz i n i c s . o r g Hospital Course: Hospital Course: The patient was admitted through same day surgery and subsequently underwent a C3-4, C4-5, C5-6, & C6-7 anterior cervical discectomy and fusion, with allograft bone 4, & anterior cervical plating from C3-7. The patient tolerated the procedure well. The patient was then was transferred to PACU and then to the OSC floor. The patient was admitted for postoperative pain control, PT/OT, supervised for chronic pain & pain management with other co-morbidities; with inpatient nurse monitoring, continuous pulse oximetry, and discharge planning. The Patient's overnight course was within normal limits. Currently the patient has complaints of mild surgical site pain, dysphagia, & mild-moderate posterior referred myofascial inflammatory pain/spasm adequately controlled with her current by mouth analgesics. The patient also has mild hoarse voice. There is significant improvement of the patient's residual myelopathic symptoms reported in her upper extremities. The patient denies headache, severe sore throat or dysphagia, chest pain, shortness of breath, abdominal pain, nausea, vomiting, constipation, diarrhea, or any new onset &/or location of pain, weakness or paresthesias aside from the surgical site. PHYSICAL EXAM This is a well developed, well nourished, overweight female who is alert, cooperative, and appears to be in no acute distress with a pleasant affect & euthymic mood. Exam of the head is normocephalic. PERRL, EOMI, without facial droop, hearing grossly intact, nostrils patent, oral cavity and pharynx normal. Voice is mildly hoarse. Exam or the heart reveals regular rate and rhythm without audible murmurs. The lungs are clear to auscultation bilaterally. The abdomen is non- tender and non-distended. Exam of the anterior cervical surgical wound reveals that it is clean, dry, and intact; without signs of infection, inflammation, and/or hematoma. There will be a rate less than 30 mL output from surgical drain in the last 8 hour period prior to discharge. Gross exam of the extremities reveals strength & sensation are grossly intact within the patient's normal baseline limits except for improvement diminished sensation in the extremities. The patient was eventually able to get out of bed and ambulate within acceptable limits. Therapy services made recommendations for disposition. Flatus was appreciated and the patient was able to void without significant difficulty. The pain was gradually under control. The patient was afebrile on discharge. The patient's incision(s) was clean, dry and intact. The dressing was changed to the Surgeon's specifications. The weight of output from the wound drain will be less then 30cc's in an 8 hour period prior to discharge and then the drain will be removed prior to discharge. The patient progressed well with rehabilitation and was subsequently discharged to home in stable condition. The patient is under the care of Pipe Cutter MIREYA Bustos for her postoperative pain management and will transition to her PCP. She understands to follow up with Mr. Allen for postoperative pain management when she discharges from the hospital. The patient verbally affirmed understanding when given clear instruction regarding the postoperative care and follow-up including but not limited to seeking immediate medical attention for chest pain, shortness of breath, oversedation, a temperature greater than 101.5 F, severe uncontrolled pain or weakness, loss of bowel or bladder function, choking, lots or drainage, pus discharge or constipation. All questions were answered. Upright lateral C-spine x-ray completed today 11/24/2016 IMPRESSION: Status post C3-7 ACDF, allograft bone 4, & anterior cervical plating from C3-7 with adequate instrumentation alignment & stable fusion construct. Disposition: Home in stable condition if she needs specific parameters detailed in the discharge order. Follow-up Plan: 1. Follow-up with physician parts room assistant in outpatient neurosurgical clinic in 1 week for wound check. 2. Follow-up with Pipe Cutter MIREYA Bustos in 1 week for postoperative pain management. Albuterol HFA (Proair HFA) 8.5 Gm Hfa.aer.ad 2 PUFFS INHALATION Q4H PRN PRN PRN (Reported) Buspirone (Buspirone) 10 Mg Tablet 10 MG PO BID (Reported) Duloxetine (Duloxetine) 30 Mg Capsule.dr 30 MG PO DAILY (Reported) Gabapentin (Gabapentin) 300 Mg Capsule 300 MG PO TID (Reported) Hydrochlorothiazide (Hydrochlorothiazide) 12.5 Mg Capsule 12.5 MG PO DAILY ( Reported) Lidocaine HCl (Lidocaine HCl Viscous) 20 Mg/1 Ml Solution 10 ML MM Q6H PRN PRN PRN (Reported) SWISH & SPIT Lisinopril (Lisinopril) 20 Mg Tablet 20 MG PO DAILY (Reported) Methocarbamol (Methocarbamol) 750 Mg Tablet 750 MG PO DAILY PRN PRN For Spasm ( Reported) Ondansetron (Zofran) 4 Mg Tablet 4 MG PO Q8H PRN PRN For Nausea (Reported) Simvastatin (Simvastatin) 20 Mg Tablet 20 MG PO HS (Reported) Tretinoin (Tretinoin) 20 Gm Cream..g. 1 APPLIC TP DAILY PRN PRN PRN (Reported) 0.025% Triamcinolone Acet (Triamcinolone Acetonide Cream) 1 Applic/0.25 Gm Cr 1 APPLIC TP DAILY (Reported) 0.1% Additional Information The patient's postoperative pain management will be supervised by Dino SU, MIREYA then transition to the patient's PCP afterwards. Attending Statement: All documentation reviewed and percent orders authorized by Dr. Brian Chambers M.D. copies to: Candis Adan Scott PA-C Nov 24, 2016 09:35
--- NOTE | 2016-11-24 09:40 | NUR ---
Evaluation completed. Please go to "Notes" then click on "Assessments and Notes" (bottom left corner of screen). Then select appropriate discipline tab on top of screen.
[2016-11-24] MEDS: BusPIRone 15 mg Dividose Tablet PO SCH (09:51)
--- NOTE | 2016-11-24 10:01 | NUR ---
Evaluation completed. Please go to "Notes" then click on "Assessments and Notes" (bottom left corner of screen). Then select appropriate discipline tab on top of screen.
[2016-11-24 10:51] VITALS: PULSE 90
--- NOTE | 2016-11-24 10:56 | DRSVH ---
PROCEDURE: X-RAY CERVICAL SPINE, 1 VIEW INDICATIONS: 66 year-old female status post cervical spine surgeries. TECHNIQUE: Single lateral view of the cervical spine acquired. COMPARISON: [facility], CR, XR CERVICAL SPINE 1VW, 11/23/2016, 8:21. FINDINGS: Bones: Patient is status post C3-C7 discectomies with interbody fusion and anterior fixation. Surgic al hardware appears intact. The cervicothoracic junction is not well-seen. No suspicious bony lesions . Soft tissues: No prevertebral soft tissue swelling. Overlying surgical drain is present. IMPRESSION: Expected appearance status post C3-C7 anterior cervical discectomies and fusion. Dictated by: Messi Dodd M.D. on 11/24/2016 at 10:48 Approved by: Messi Dodd M.D. on 11/24/2016 at 10:50
--- NOTE | 2016-11-24 11:30 | NUR ---
Social Work: Screening Data: Pt is a 70 y/o female admitted for cervical spondylosis with myelopathy. SW met with patient at bedside for initial screening. Pt confirmed PCP is Edilia Adan DO and insurance is [place] out of count includes the [facility]. Pt is independent at baseline. Pt drives and does not use any DME at home. Pt does not have LTC or [facility] insurance. Pt has no HH or SNF history. SW read PT evaluation and notes that PT recommends pt to go home with no needs. SW will continue to follow. Assessment: Pt who is independent at baseline. Plan: Pt to go home with no needs indentified. Pt to go home with via POV at time of discharge.
[2016-11-24 11:51] VITALS: BP 137/81; PULSE 94; RESP 16; O2SAT 98
--- NOTE | 2016-11-24 13:27 | NUR ---
Social Work-discharge: Data:EMR Reviewed. Pt is on day 1 of hospitalization for cervical spondylosis per H&P. Pt is medically stable for discharge. PT and OT have seen pt and cleared for home no needs. Pt's to provide transport home today. No other discharge needs. All updated and agreeable to plan. Assessment:Pt who is independent at baseline. Plan:Pt to discharge home today via POV. No other discharge needs. All updated and agreeable to plan. DUSTIN Cali
--- NOTE | 2016-11-24 16:00 | NUR ---
Discharge All discharge teaching and instructions done with at bedside. All questions answered. PETTY drain d/c'd per instructions. Pt allergic to iodine so chlorhexadine used to saturate steri strips. Pt given extra dressing in case she needs to change. IV d/c'd intact. No items in the safe or in the pharmacy. driving pt home. No RX was given. Pt's pain control to be under the supervision of Dino Allen in [place]. Pt to [facility] RX on her way home from the hospital. Pt to f/u with neuro PA in 1 week.
== END 2016-11-24 16:00 | disposition home or self-care (01) | DRG 473 ==
LOC: SAS 06:02 → OSC 14:52
PROVIDERS: ADMIT Neurological Surgery; ATTEND Neurological Surgery
PROC: 0RT30ZZ Resection of Cervical Vertebral Disc, Open Approach (ICD-10-PCS; 2016-11-23)
PROC: 0RG20K0 Fusion of 2 or more Cervical Vertebral Joints with Nonautologous Tissue Substitute, Anterior Approach, Anterior Column, Open Approach (ICD-10-PCS; principal; 2016-11-23 07:30)
DX: M47.12 Other spondylosis with myelopathy, cervical region (principal); Z87.891 Personal history of nicotine dependence